=== PATIENT | male | born 1965 | race Caucasian/White ===

== ENCOUNTER 2024-08-09 16:07 | Outpatient (CLI) | payer BC ==
[2024-08-09 16:57] LABS: #Basophils 0.05 10x3/uL (0.0-0.2); #Eosinophils 0.34 10x3/uL (0.0-0.5); #Monocytes 0.59 10x3/uL (0.0-1.1); #Neutrophils 5.89 10x3/uL (1.5-8.4); %Basophils 0.5 % (0.0-2.0); %Eosinophils 3.7 % (0.0-6.0); %Lymphocytes 25.4 % (18.0-47.0); %Monocytes 6.4 % (0.0-10.0); %Neutrophils 63.5 % (40.0-75.0); Hematocrit 37.2 % (38.8-50.0); Mean Corpuscular HGB CONC 34.9 g/dL (32.0-36.0); Mean Corpuscular Hemoglobin 31.8 pg (27.0-33.0); Mean Platelet Volume 9.6 fL (7.4-10.4); Platelet Count 229 10x3/uL (150-450); RBC Distribution Width 12.8 % (11.5-14.5); Red Blood Cell (RBC) Count 4.09 10x6/uL (4.32-5.72); White Blood Cell (WBC) Count 9.27 10x3/uL (3.5-10.5)
[2024-08-09 17:23] LABS: ALT (SGPT) 18 U/L (8-55); AST (SGOT) 16 U/L (5-34); Albumin 4.9 g/dL (3.5-5.0); Alkaline Phosphatase 62 U/L (40-110); Anion Gap 14 mmol/L (10-20); BUN (Urea Nitrogen) 19 mg/dL (8.4-25.7); Bilirubin, Direct 0.1 mg/dL (0.1-0.3); Bilirubin, Total 0.3 mg/dL (0.2-1.2); Calc. Creatinine Clearance 0 mL/min (70-130); Calcium 10.2 mg/dL (7.8-10.44); Carbon Dioxide 27 mmol/L (22-29); Chloride 104 mmol/L (98-107); Estimated GFR 93; Glucose 103 mg/dL (70-105); Potassium 4.2 mmol/L (3.5-5.1); Protein, Total 7.5 g/dL (6.0-8.3); Sodium 141 mmol/L (136-145)
== END 2024-08-09 16:08 | disposition home or self-care (01) ==
LOC: CSHLAB 16:07
PROVIDERS: ATTEND Surgery
DX: Z01.812 Encounter for preprocedural laboratory examination (principal); K64.8 Other hemorrhoids
CPT/HCPCS: 80048; 80076; 85025

== ENCOUNTER 2024-08-13 06:49 | Day surgery (SDC) | payer BC ==
[2024-08-12 08:46] VITALS: BMI 29.7
[2024-08-13] MEDS ORDERED: PROPOFOL 20 ML ONE (08:08)
[2024-08-13] MEDS ORDERED: fentaNYL 50 mcg/mL 1 mL Vial ONE ×3 (08:09→10:45)
[2024-08-13] MEDS ORDERED: PROPOFOL 40 ML ONE (08:23)
[2024-08-13] MEDS ORDERED: Bupivacaine/Epinephrine 0.25% 30 ML VIAL ONE (08:47)
[2024-08-13] MEDS ORDERED: Lidocaine 2% 6 ML (Jelly) SYR ONE (08:47)
[2024-08-13] MEDS ORDERED: Lidocaine 2% PF 5 ML VIAL ONE (08:47)
[2024-08-13] MEDS ORDERED: Sevoflurane 250 ML INH ANEST BOTTLE ONE (08:49)
[2024-08-13] MEDS ORDERED: ceFOXitin 1 GM VIAL ONE (09:02)
[2024-08-13] MEDS ORDERED: Dexamethasone 4 mg/ml Vial ONE (09:26)
[2024-08-13] MEDS ORDERED: Ketorolac Tromethamine 30 MG (1 mL) VIAL ONE (09:59)
[2024-08-13] MEDS ORDERED: SUGAMMADEX SODIUM 200 MG/2 ML VIAL ONE (09:59)
[2024-08-13] MEDS ORDERED: Ondansetron PF 4 MG/2 ML Vial ONE ×2 (09:59→10:50)
[2024-08-13] MEDS ORDERED: ePHEDrine Sulfate 50 MG/10 ML VIAL ONE (10:05)
[2024-08-13] MEDS ORDERED: traMADol HCl 50 MG TAB ONE (11:27)
== END 2024-08-13 12:50 | disposition home or self-care (01) ==
LOC: CSHSDC 06:49
PROVIDERS: ATTEND Surgery
PROC: 06BY0ZC Excision of Hemorrhoidal Plexus, Open Approach (ICD-10-PCS; principal; 2024-08-13)
DX: K64.8 Other hemorrhoids (principal); Z87.891 Personal history of nicotine dependence; Z88.5 Allergy status to narcotic agent; Z79.899 Other long term (current) drug therapy
CPT/HCPCS: 88304; J0694; J1100; J1885; J2405; J2704; J3010